=== PATIENT | female | born 1940 | race Caucasian/White ===

== ENCOUNTER 2017-12-26 14:09 | Outpatient (CLI) ==
[2017-12-26] MEDS ORDERED: TYLENOL PO STA (14:24)
[2017-12-26] MEDS ORDERED: BENADRYL 25 MG in SODIUM CHLORIDE 100 ML IV STA (14:25)
[2017-12-26] MEDS ORDERED: LASIX IVP PRN (14:36)
[2017-12-26 23:53] VITALS: TEMP 97.8
[2017-12-27 00:10] VITALS: BP 104/59
== END 2017-12-26 14:10 | disposition home or self-care (01) ==
LOC: LAB 14:09 → OPMED 14:10
PROVIDERS: ATTEND Internal Medicine Hematology & Oncology
DX: C34.32 Malignant neoplasm of lower lobe, left bronchus or lung (principal); C78.7 Secondary malignant neoplasm of liver and intrahepatic bile duct; D47.3 Essential (hemorrhagic) thrombocythemia; D68.59 Other primary thrombophilia; D72.829 Elevated white blood cell count, unspecified; D64.81 Anemia due to antineoplastic chemotherapy; D63.0 Anemia in neoplastic disease; T45.1X5A Adverse effect of antineoplastic and immunosuppressive drugs, initial encounter; D70.9 Neutropenia, unspecified; E86.0 Dehydration; N18.9 Chronic kidney disease, unspecified; J44.9 Chronic obstructive pulmonary disease, unspecified; I10 Essential (primary) hypertension; E78.00 Pure hypercholesterolemia, unspecified; M19.90 Unspecified osteoarthritis, unspecified site; K59.03 Drug induced constipation; R51 Headache; K21.9 Gastro-esophageal reflux disease without esophagitis; Z72.0 Tobacco use
CPT/HCPCS: 36415; 36430; 86850; 86900; 86922